=== PATIENT | male | born 1965 | race African-American/Black ===

== ENCOUNTER 2023-08-26 20:13 | Emergency (ER) | payer OTHER, SELFPAY ==
--- NOTE | ~2023-08-26 | CT_ITS ---
EXAMINATION: CT ANGIOGRAM OF THE CHEST WITH AND WITHOUT CONTRAST (CT PULMONARY ANGIOGRAM FOR PE) CLINICAL INFORMATION: Reason for Exam cp and elevated d dimer COMPARISON: None available. TECHNIQUE: Prior to contrast administration, noncontrast localization images were obtained. Subsequently, multidetector volumetric imaging was performed from the thoracic inlet to below the diaphragms following the administration of 80 mL Omnipaque 350 intravenous contrast. No contrast reaction reported Sagittal, coronal, and MIP oblique sagittal reformatted images were obtained on the CT workstation, uploaded to PACS, and reviewed. This CT examination was performed using dose optimization techniques as appropriate, variously including the following: *Automated exposure control *Adjustment of mA and/or kV according to patient size (this includes techniques or standardized protocols for targeted exams where dose is matched to indication/reason for exam; i.e. extremities or head) *Use of iterative reconstruction technique Total exam dose-length product mGy-cm FINDINGS: QUALITY OF STUDY/CONTRAST BOLUS: Satisfactory. PULMONARY ARTERIES: No pulmonary emboli. THORACIC AORTA: No aneurysm. LUNG: No focal consolidation, nodules or masses. PLEURA: No pleural effusion or pneumothorax. MEDIASTINUM: Normal heart size. No pericardial effusion. No hilar or mediastinal lymphadenopathy. No evidence of septal bowing or right heart strain. CORONARY ARTERY CALCIFICATION: None visualized on this study. CHEST WALL/AXILLA: No axillary or internal mammary lymphadenopathy. OSSEOUS STRUCTURES: No acute or suspicious osseous abnormality. UPPER ABDOMEN: There is a 4.8 cm cyst upper pole left kidney. No reflux of contrast into the hepatic veins to suggest elevated right heart pressures. CT/CT angio chest PE protocol IMPRESSION: No evidence of pulmonary embolism. No active cardiopulmonary disease. VTE: negative.
--- NOTE | ~2023-08-26 | XR_ITS ---
EXAMINATION: XR CHEST CLINICAL INFORMATION: Chest pain. COMPARISON: None available. TECHNIQUE: Frontal view of the chest was obtained. FINDINGS: Normal appearance of the cardiomediastinal silhouette. No focal airspace opacities, pleural effusion or pneumothorax. No acute osseous findings. Visualized upper abdomen is within normal limits. XR/XR chest 1V IMPRESSION: No acute cardiopulmonary findings.
--- NOTE | 2023-08-26 20:20 | ECG_ITS ---
Test Reason : chest pain Blood Pressure : / mmHG Vent. Rate : 058 BPM Atrial Rate : 058 BPM P-R Int : 146 ms QRS Dur : 088 ms QT Int : 390 ms P-R-T Axes : 056 -07 024 degrees QTc Int : 382 ms Sinus bradycardia Minimal voltage criteria for LVH, may be normal variant ( R in aVL ) Borderline ECG No previous ECGs available Referred By: Generic ED Physician Electronically Signed By:ERNESTINE QUINONES MD
[2023-08-26 20:31] VITALS: BP 135/69; PULSE 58; RESP 18; TEMP 37.1; O2SAT 98; BMI 31.0
--- NOTE | 2023-08-26 20:38 | ED_ITS ---
HPI - Chest Pain General Chief Complaint: Chest Pain Stated Complaint: LFT SIDE UPPER CHEST PAIN/FLATULANCE Time Seen by Provider: 08/27/23 01:14 Source: patient Mode of arrival: ambulatory Limitations: no limitations History of Present Illness HPI narrative: 58-year-old male with no much past medical history came in for evaluation of left-sided chest pain started since yesterday, pain is on and off localized to the left side of the chest without radiation, no clear aggravating factor or relieving factor, no other associated symptoms. Declined any recent travel, no lower extremity swelling or tenderness, no history of PE or DVT. Patient declined any history of hypertension, diabetes, or family history of heart disease. Patient also been getting in epigastric burning sensation patient think it is GERD. Related Data Allergies Allergy/AdvReac Type Severity Reaction Status Date / Time No Known Allergies Allergy Verified 08/26/23 20:36 Review of Systems 2 Review of Systems: All other systems are reviewed and are negative Constitutional: Reports as per HPI and Reports no additional constitutional complaints Eyes: Reports as per HPI and Reports no additional eye complaints Reports system reviewed and no additional complaints, except as documented Cardiovascular: Reports as per HPI and Reports no additional cardiovascular complaints Respiratory: Reports as per HPI and Reports no additional respiratory complaints Gastrointestinal: Reports as per HPI and Reports no additional gastrointestinal complaints Genitourinary: Reports no additional female genitourinary complaints Musculoskeletal: Reports no additional musculoskeletal complaints Skin/Breast: Reports system reviewed and no additional complaints, except as docu Psychiatric: Reports no additional psychiatric complaints Endocrine: Reports no additional endocrine complaints Hematologic/Lymphatic: Reports no additional hematologic/lymphatic complaints Allergic/Immunologic: Reports no additional allergic/immunologic complaints Reports system reviewed and no additional complaints, except as documented and Reports Abnormal speech present [facility] Social History Social History Advance Directives: No Advance Directives Information Provided: No Physical Exam 2 Vital Signs: Vital Signs: Last Vital Signs Temp 97.7 F 08/27/23 02:00 Pulse 49 L 08/27/23 04:06 Resp 10 L 08/27/23 04:06 BP 118/78 08/27/23 04:06 Pulse Ox 98 08/27/23 04:06 O2 Del Method Room Air 08/27/23 04:06 BMI result Body Mass Index 31.0 Vital signs have been reviewed and appear to be correct. Blood pressure elevated. Heart rate normal. Respiratory rate normal. Temperature normal. Oxygen saturation normal. Appearance: Alert. Oriented X3. No acute distress. Head: Normal external exam. Normocephalic. Atraumatic. No Sanchez signs noted. No raccoon eyes noted Eyes: PERRLA. EOMI. Conjunctiva and sclera normal. Eyelids normal. ENT: TM's Normal. Pharynx normal. Uvula midline. Moist mucous membranes. No trismus noted. No drooling noted. No muffled voice noted. Neck: Normal inspection. Neck supple. FROM. No adenopathy. Thyroid Normal. No meningeal signs. No neck mass noted. CVS: Normal heart rate and rhythm. Heart sound normal. No murmurs noted. Pulses normal throughout. Respiratory: No respiratory distress. Painless inspiration. Breath sounds normal. No wheezes/rales/rhonchi noted. Chest nontender. No accessory muscle usage noted or decreased air movement noted. Abdomen: Soft, mild epigastric tenderness, no rebound tenderness, no guarding. Bowel sounds normal in all 4 quadrants. No distention noted. No organomegaly noted. No visible injury noted. Back: No CVA tenderness. Full range of motion noted. Skin: Skin warm and dry. Normal skin color. Normal skin turgor. No rashes/lesions/lacerations noted. Extremities: No lower extremity edema. Extremities exhibit normal range of motion. Extremities nontender. Neuro: Oriented X 3. Cranial nerve exam: II-XII are grossly intact No motor deficit. No sensory deficit. Reflexes normal. Course Course Course Narrative: RME: 58 yold male with pmh of GERD presents to the ED for epigastric acid burning sensation with left sided chest pain. Cardiac work up ordered. Reevaluation(s) Reevaluation #1: Left-sided chest pain since yesterday, patient is at low risk for heart disease, elevated D-dimer CT angio of the chest ruled out pulmonary embolism patient also at low risk for pulmonary embolism. Patient was reassured and instructed to follow-up with PCP/Dr. Casillas. Time: 02:00 Medications Administered Discontinued Medications Generic Name Dose Route Start Last Admin Trade Name Freq PRN Reason Stop Dose Admin Iohexol 65 ml 08/27/23 03:28 08/27/23 03:28 Iohexol 350 Mg/Ml 100 Ml Infus..Btl IV 08/27/23 03:29 65 ml ONCE ONE Administration Medical Decision Making Differential Diagnosis Differential Diagnoses: The differential diagnosis associated with the presentation includes (ACS, pulmonary embolism, pneumonia, pneumothorax, electrolyte derangement, severe anemia.) Admission/Observation Consideration of admission/observation: Escalation of care including admission/observation considered Lab Data MDM Lab Attestation statement: I reviewed the patient's lab results. 08/26/23 21:28 08/26/23 21:28 Labs: Lab Results 08/26/23 08/26/23 08/27/23 Range/Units 21:28 21:29 02:40 WBC 3.9 L (4.8-10.8) X10*3/uL RBC 4.51 L (4.60-5.80) X10*6/uL Hgb 13.8 L (14.0-18.0) g/dl Hct 40.0 L (42.0-52.0) % MCV 88.7 (80.0-98.0) fL MCH 30.6 (27.0-33.0) pg MCHC 34.5 (31.0-36.0) g/dl RDW 12.3 (11.0-16.0) % Plt Count 187 (160-400) X10*3/uL MPV 9.5 (9.4-12.4) fL Immature Gran % (Auto) 0.3 (0.0-0.4) % Neut % (Auto) 31.6 L (45-73) % Lymph % (Auto) 50.6 H (20-40) % [place] % (Auto) 13.4 H (2-11) % Eos % (Auto) 3.3 (0-4) % Baso % (Auto) 0.8 (0-2) % Lymph # (Auto) 2.0 (1.2-4.9) X10*3/uL [place] # (Auto) 0.5 (0.1-1.2) X10*3/uL Eos # (Auto) 0.1 (0.0-0.4) X10*3/uL Baso # (Auto) 0.0 (0.0-0.2) X10*3/uL Abs Immat Gran (auto) 0.01 (0.00-0.03) X10*3/uL Absolute Neuts (auto) 1.2 L (2.0-8.3) x10*3/uL Absolute Nucleated RBC 0.000 (0.0-0.012) X10*3/uL Nucleated RBC % (auto) 0.0 (0.0-0.2) /100WBC PT 10.8 L (11.1-13.3) SEC INR 0.9 (0.9-1.1) APTT 24.8 L (26.0-36.8) SEC D-Dimer High Sensitivty 390 NG/ML Sodium 142 (135-145) mmol/L Potassium 3.8 (3.3-5.1) mmol/L Chloride 106 (96-108) mmol/L Carbon Dioxide 28 (22-29) mmol/L Anion Gap 12 (12-20) BUN 11 (9-16) mg/dL Creatinine 1.14 (0.5-1.4) mg/dL Estim Creat Clear Calc 72.1 Estimated GFR > 60 Random Glucose 85 (60-115) mg/dL Calcium 9.5 (8.4-10.2) mg/dL Total Bilirubin 0.3 (0.0-1.0) mg/dL AST 18 (5-37) U/L ALT 18 (0-40) U/L Alkaline Phosphatase 51 (39-117) U/L Troponin I High Sens < 2.7 < 2.7 (<3.5-35.0) ng/L B-Natriuretic Peptide 36 (<100) pg/mL Total Protein 7.0 (6.5-8.0) g/dL Albumin 4.3 (3.5-5.0) g/dL Lipase 43 (8-78) U/L Independent Interpretation I performed an independent interpretation of an: EKG (Sinus rhythm at 50 beats per minutes, normal intervals, no ST-T changes, no old EKG to compare.), Plain X-Ray (Chest: No acute cardiopulmonary findings.) and CT Scan (CTa chest: No pulmonary embolism.) Radiology Impression Discussion of test interpretation with radiology: I have reviewed the radiologist's reading. Scores Heart Score History: -0- slightly suspicious ECG: -0- normal Age: -1- >45 - <65 Risk factory: -1- 1 or 2 risk factors Troponin: -0- < or = normal limit Score: 2 Risk: 1.7% Discharge Plan Discharge Clinical Impression: Atypical chest pain Patient Disposition: Home, Self-Care Instructions: Chest Pain (ED) Referrals: Raghu Casillas MD [Physician] - Stand Alone Forms: Work/School Release Interventions: ED Discharge Assessment Last Done: 08/27/23 05:29 Discharge Date/Time: 08/27/23 05:36
[2023-08-26 21:32] LABS: MANUAL DIFF FLAG NO
[2023-08-26 21:34] LABS: Basophils Percent Auto 0.8 % (0-2); Eosinophils Absolute Auto 0.1 X10*3/uL (0.0-0.4); Eosinophils Percent Auto 3.3 % (0-4); Hemoglobin 13.8 g/dl (14.0-18.0); Imm Gran Abs Auto 0.01 X10*3/uL (0.00-0.03); Imm Gran Pct Auto 0.3 % (0.0-0.4); Lymphocytes Percent Auto 50.6 % (20-40); Mean Corpuscular HGB Conc 34.5 g/dl (31.0-36.0); Mean Corpuscular Hemoglobin 30.6 pg (27.0-33.0); Mean Corpuscular Volume 88.7 fL (80.0-98.0); Mean Platelet Volume 9.5 fL (9.4-12.4); Monocytes Absolute Auto 0.5 X10*3/uL (0.1-1.2); Monocytes Percent Auto 13.4 % (2-11); Neutrophils Absolute Auto 1.2 x10*3/uL (2.0-8.3); Neutrophils Percent Auto 31.6 % (45-73); Platelet Count 187 X10*3/uL (160-400); Red Blood Count 4.51 X10*6/uL (4.60-5.80); Red Cell Distribution Width 12.3 % (11.0-16.0); White Blood Count 3.9 X10*3/uL (4.8-10.8)
[2023-08-26 21:39] LABS: INTERNATIONAL NORM RATIO 0.9 (0.9-1.1); Prothrombin Time 10.8 SEC (11.1-13.3)
[2023-08-26 21:41] LABS: Partial Thromboplastin Time 24.8 SEC (26.0-36.8)
[2023-08-26 21:48] LABS: Alanine Aminotransferase 18 U/L (0-40); Albumin Level 4.3 g/dL (3.5-5.0); Alkaline Phosphatase 51 U/L (39-117); Anion Gap 12 (12-20); Aspartate Amino Transferase 18 U/L (5-37); Bilirubin Total 0.3 mg/dL (0.0-1.0); Blood Urea Nitrogen 11 mg/dL (9-16); Calcium 9.5 mg/dL (8.4-10.2); Carbon Dioxide 28 mmol/L (22-29); Chloride 106 mmol/L (96-108); Creatinine Clr Calc Pharmacy 72.1; Estimated Glomerular Filt Rate > 60; Glucose Random 85 mg/dL (60-115); Lipase 43 U/L (8-78); Potassium 3.8 mmol/L (3.3-5.1); Sodium 142 mmol/L (135-145)
[2023-08-26 21:54] LABS: B Type Natriuretic Peptide 36 pg/mL (<100)
[2023-08-26 21:55] LABS: Troponin-I High Sensitivity < 2.7 ng/L (<3.5-35.0)
[2023-08-27 01:08] VITALS: PULSE 50
[2023-08-27 01:12] VITALS: BP 100/70; PULSE 49; RESP 15; TEMP 530.9; TEMP 987.6; O2SAT 100
[2023-08-27 01:53] LABS: D Dimer High Sensitivity 390 NG/ML
[2023-08-27 02:00] VITALS: BP 112/73; PULSE 48; RESP 14; TEMP 36.5; O2SAT 99
[2023-08-27 03:04] LABS: Troponin-I High Sensitivity < 2.7 ng/L (<3.5-35.0)
[2023-08-27] MEDS: iohexoL 350 MG/ML 100 ML INFUS..BTL 65 ML IV (03:28)
[2023-08-27 04:06] VITALS: BP 118/78; PULSE 49; RESP 10; O2SAT 98
== END 2023-08-27 05:36 | disposition home or self-care (01) ==
PROVIDERS: Physician Assistant; Emergency Provider Emergency Medicine
DX: R07.89 Other chest pain (principal); R00.1 Bradycardia, unspecified; R06.02 Shortness of breath; Z79.899 Other long term (current) drug therapy
CPT/HCPCS: 36415; 71045; 71275; 80053; 83690; 83880; 84484; 85025; 85379; 85610; 85730; 93005; 99284; 99285; Q9967

== ENCOUNTER → 2023-08-26 20:20 | Outpatient (BNV) | payer OTHER, SELFPAY | PROVIDERS: Emergency Provider Emergency Medicine; Visit Provider Internal Medicine Cardiovascular Disease | DX: R07.9 Chest pain, unspecified (principal) | CPT/HCPCS: 93010 ==

== ENCOUNTER 2024-04-06 10:55 | Outpatient (AMB) | payer OTHER, SELFPAY ==
[2024-04-06 11:06] VITALS: BP 124/80; PULSE 58; O2SAT 98; BMI 30.4
--- NOTE | 2024-04-06 11:06 | HO.NEPHOV_ITS ---
Vital Signs 04/06/24 11:06 Height 5 ft 6 in Weight 188 lb 4 oz BMI 30.4 BP 124/80 Blood Pressure Location Lt brachial Position Sitting Pulse 58 Pulse Source Pulse Oximeter Pulse Oximetry (%) 98 Oxygen Delivery Method Room Air Intake Visit Reasons: Previous Pt- Conf Naturopathic Doctor Required: No Accompanied by: Self / Same As Patient Allergies No Known Allergies Allergy (Verified 04/06/24 11:10) HPI Comments Details: Erickson was seen in follow-up of his mild chronic kidney disease. He recently had a hernia repaired. He does not take any nonsteroidal anti-inflammatories. He maintains good hydration. He is on tamsulosin for prostatic symptoms. He has no orthostasis. He does not have any chest pain, shortness of, proximal nocturnal dyspnea,, pedal edema, urinary symptoms, sinusitis, recent antibiotic intake, epistaxis, hematemesis, melena, flank pain or renal calculi. He feels well did not major complaints during this office visit. [facility] Medical History (Updated 04/06/24 @ 11:29 by Merlin Cuello MD) Chronic kidney disease Surgical History (Updated 04/06/24 @ 11:11 by Karen Lind MA) History of hernia repair Social History (Updated 04/06/24 @ 11:11 by Karen Lind MA) Alcohol intake: never Patient Tobacco Use Status: Never used Tobacco Review of Systems Const All systems reviewed & are unremarkable except as noted in HPI and below Physical Exam Vital Signs: Last Vital Signs Pulse 58 04/06/24 11:06 BP 124/80 04/06/24 11:06 Pulse Ox 98 04/06/24 11:06 Oxygen Delivery Method Room Air 04/06/24 11:06 BMI result Body Mass Index 30.4 Const General: comfortable and no acute distress Orientation/consciousness: patient oriented x3 HEENT Head: Yes normocephalic Mouth: Normal oral and palatal mucosa present Eyes EOM: EOMs intact bilaterally Neck Neck: Yes supple Resp Auscultation: clear to auscultation bilaterally Cardio Jugular venous distension: no JVD Rate: regular rate GI Palpation (GI): Soft to palpation Auscultation: normal bowel sounds General: Yes no CVA tenderness Back/Spine/Pelvis Back: no CVA tenderness Skin General skin exam: no rashes or lesions noted Neuro General: patient oriented x3 and moves all extremities Extrem General: Yes no pedal edema Results Reviewed Nephrology Results: Hgb 13.8 g/dl (14.0-18.0) L 08/26/23 WBC 3.9 X10*3/uL (4.8-10.8) L 08/26/23 Plt Count 187 X10*3/uL (160-400) 08/26/23 Sodium 142 mmol/L (135-145) 08/26/23 Potassium 3.8 mmol/L (3.3-5.1) 08/26/23 Chloride 106 mmol/L (96-108) 08/26/23 Carbon Dioxide 28 mmol/L (22-29) 08/26/23 BUN 11 mg/dL (9-16) 08/26/23 Creatinine 1.14 mg/dL (0.5-1.4) 08/26/23 Calcium 9.5 mg/dL (8.4-10.2) 08/26/23 Assessment & Plan Assessment & Plan (1) CKD (chronic kidney disease) stage 2, GFR 60-89 ml/min: Code(s): N18.2 - Chronic kidney disease, stage 2 (mild) Category: Medical Plan Erickson has a very mild CKD a long time. His renal functions very stable. His blood pressure is at goal. He maintains good hydration. He avoids nonsteroidal anti-inflammatories. I did not make any medication changes today. Follow-up lab work ordered. I intend to do a 24 hour urine collection for creatinine clearance after next visit. Answered all questions. Follow-up appointment given. Orders: Orders Creatinine 6 Months N18.2 - Chronic kidney disease, stage 2 (mild) Electrolytes 6 Months N18.2 - Chronic kidney disease, stage 2 (mild) Protein Creatinine Ratio, Ur 6 Months N18.2 - Chronic kidney disease, stage 2 (mild) Parathyroid Hormone Intact 6 Months N18.2 - Chronic kidney disease, stage 2 (mild) Blood Urea Nitrogen 6 Months N18.2 - Chronic kidney disease, stage 2 (mild) UA and rflx microscopic 6 Months N18.2 - Chronic kidney disease, stage 2 (mild) Vitamin D 25-OH Total 6 Months N18.2 - Chronic kidney disease, stage 2 (mild) Calcium 6 Months N18.2 - Chronic kidney disease, stage 2 (mild) Coding Level of Care Code Est Pt Level 4 (90896) Diagnoses CKD (chronic kidney disease) stage 2, GFR 60-89 ml/min N18.2
== END 2024-04-06 11:33 | disposition home or self-care (01) ==
PROVIDERS: Visit Provider Internal Medicine Nephrology
DX: N18.2 Chronic kidney disease, stage 2 (mild) (principal)
CPT/HCPCS: 99214

== ENCOUNTER → 2024-04-06 10:55 | Outpatient (BNVA) | payer OTHER, SELFPAY | PROVIDERS: Visit Provider Internal Medicine Nephrology ==

== ENCOUNTER 2024-12-03 15:03 | Outpatient (REF) | payer BC, SELFPAY ==
--- OUTSIDE RECORDS SUMMARY | 2024-12-03 15:07 | XMS_ITS | Clinical Summary ---
Author Organization [facility] Address [address] [place] [address] Care Team Providers Care Leasing Consultant Name Role Phone Anne-Marie Carvalho DO Primary Care Provider [phone] Allergies No known active allergies Medications ascorbic acid, vitamin C, 500 mg capsule Take 500 mg by mouth daily. Active cholecalciferol (VITAMIN D-3) 10 mcg (400 unit) tablet Take 1 Tablet by mouth daily. Active latanoprost (XALATAN) 0.005 % ophthalmic solution 1 Drop at bedtime. Active multivitamin (MULTI-DAY ORAL) Take by mouth. Active tamsulosin (FLOMAX) 0.4 mg 24 hr capsule Take 1 capsule (0.4 mg total) by mouth 1 (one) time each day. 01/05/2024 Active tadalafiL (CIALIS) 5 mg tablet Take 1 tablet (5 mg total) by mouth 1 (one) time each day if needed for erectile dysfunction. 10 tablet 2 09/10/2024 Active Active Problems Problem Noted Date Diagnosed Date BPH (benign prostatic hyperplasia) 09/10/2024 Prediabetes 11/25/2022 Obesity (BMI 30-39.9) 04/29/2022 IBS (irritable bowel syndrome) 04/29/2022 Overview (05/05/2024): Constipation predominant Hyperlipidemia 04/29/2022 Glaucoma 04/29/2022 Erectile dysfunction 04/29/2022 Encounters Date Type Department Care Team Description 09/10/2024 10:45 AM EST [facility] [address] [place] [address] Bjiu Hooker PA Mixed hyperlipidemia (Primary Dx); Prediabetes; Benign prostatic hyperplasia, unspecified whether lower urinary tract symptoms present; Glaucoma, unspecified glaucoma type, unspecified laterality; Erectile dysfunction, unspecified erectile dysfunction type from Last 3 Months Immunizations Name Administration Dates Next Due Hep A, Unspecified 11/26/2005 Influenza Quadravalent, MDCK , 0.5ml, preservative free (Flucelvax) 6mo and older 04/29/2022,04/25/2021 Influenza trivalent, 0.5mL, preservative free (Fluarix; FluLaval; Fluzone) ages 6mo and older (Afluria) 3 years and older 06/09/2020 Influenza trivalent, with pr eservative (Fluzone; Afluria) 6mo and older 07/21/2017,06/13/2016 Pneumococcal polysaccharide 23 valent (Pneumovax 23) 2yo and older 10/13/2021 Tdap Tetanus diptheria acell ular pertussis (Boostrix; Adacel) 7yo and older 04/29/2022 Typhoid VICPS (Typhim Vi) 2yo and older 11/27/19 06 Yellow Fever (YF-VAX) 9mo and older 11/26/2005 Surgical History Surgery Date Site/Laterality Comments OTHER SURGICAL HISTORY PROCEDURE: [place] RPR UMBILICAL HRNA 5 YRS/> REDUCIBLE HERNIA REPAIR PROCEDURE: [place] REPAIR FIRST ABDOMINAL WALL HERNIA Family History Medical History Relation Name Comments No Known Problems Brother 1 No Known Problems Brother 2 No Known Problems Brother 3 No Known Problems Father No Known Problems Mother No Known Problems Sister 1 No Known Problems Sister 2 No Known Problems Sister 3 No Known Problems Sister 4 No Known Problems Sister 5 Relation Name Status Comments Brother 1 Alive Brother 2 Alive Brother 3 Alive Father Mother Sister 1 Alive Sister 2 Alive Sister 3 Alive Sister 4 Alive Sister 5 Alive Social History Tobacco Use Types Packs/Day Years Used Date Smoking Tobacco: Never Smokeless Tobacco: Never Tobacco Cessation:Counseling Given: Not Answered Alcohol Use Standard Drinks/Week Comments Never 0 (1 standard drink = 0.6 oz pur e alcohol) Housing Instability Answer Date Recorde d Are you worried that in the next 2 months you may not have stable housing? No 09/03/2024 Food Access & Nutrition Answer Date Rec orded Do you have access to a vari ety of food including fruits and vegetables? Yes 09/03/2024 Access to Healthcare Answer Date Record ed Within the last 3 months, ho w many times did you visit the emergency department for your medical care? 0 09/03/2024 Health Literacy Answer Date Recorded How often do you need to hav e someone help you when you read instructions, pamphlets, or other written material from your doctor or pharmacy? Never 09/03/2024 Caregiver: How often do you need to have someone help you when you read instructions, pamphlets, or other written material from your doctor or pharmacy? Not on file 09/03/2024 Financial Risk Answer Date Recorded How hard is it for you to pa y for the very basics like food, housing, medical care, and air conditioning / heating? Hard 09/03/2024 Transportation Answer Date Recorded Has the lack of transportati on kept you from meetings, work, or from getting things needed for daily living? No Has the lack of transportati on kept you from medical appointments or from getting medications? No 09/03/2024 Social Isolation Answer Date Recorded How often do you feel lonely or isolated from th ose around you? Never 09/03/2024 Food Risk Answer Date Recorded Within the past 12 months we worried whether our food would run out before we got money to buy more. Never true 09/03/2024 Within the past 12 months th e food we bought just didn't last and we didn't have money to get more. Never true 09/03/2024 Dependent Care Answer Date Recorded Do you need help finding or paying for care for your loved ones. For example, early childhood teacher assistant or elderly care for an older adult? No 09/03/2024 Education Answer Date Recorded Do you think completing more education or training, like finishing a GED, going to college, or learning a trade, would be helpful for you? Yes 09/03/2024 Employment and Income Answer Date Recor ded During the last four weeks, have you been actively looking for work? No 09/03/2024 Living Situation Answer Date Recorded What is your living situation? 0 09/03/2024 Sex and Gender Information Value Date Recorded Sex Assigned at Not on file Legal Sex Male 9:31 PM EST Gender Identity Not on file Sexual Orientation Not on file Obstetrics History Last Filed Vital Signs Vital Sign Reading Time Taken Comments Blood Pressure 102/68 09/10/2024 10:36 AM EST Pulse 64 09/10/2024 10:36 AM EST Temperature 36.4 ??C (97.5 ??F) 05/26/2024 9:39 AM ES T Respiratory Rate 16 09/10/2024 10:36 AM EST Oxygen Saturation - - Inhaled Oxygen Concentration - - Weight 84.4 kg (186 lb) 09/10/2024 10:36 AM EST Height 167.6 cm (5' 6 ) 05/26/2024 9:39 AM EST Body Mass Index 30.02 05/26/2024 9:39 AM EST Plan of Treatment Health Maintenance Due Date Last Done Comments Pneumococcal Vaccine: 50+ Years (2 of 2 - PCV) 10/13/2022 10/13/2021 Zoster Vaccines (2 of 2) 02/16/2023 12/22/2022 COVID-19 Vaccine ( season) 2024 12/22/2022, 10/13/2021, 03/13/2021, Additional history exists Depression Screening 09/03/2025 09/03/2024 Social Influencers of Health Screening 09/03/2025 09/03/2024 Colorectal Cancer Screening: Colonoscopy 06/28/2028 06/28/2023 Cholesterol Screening (Lipid Panel) 09/10/2029 09/10/2024, 12/05/2023, 12/05/2023 DTaP,Tdap,and Td Vaccines (3 - Td or Tdap) 04/29/2032 04/29/2022, 02/21/2022 RSV Immunization Adult Patients (1 - 1-dose 75+ series) 2039 Pneumococcal Vaccine: Pediatrics (0 to 5 Years) and At-Risk Patients (6 to 64 Years) Aged Out 10/13/2021 No longer eligible based on patient's age to complete this topic Hepatitis C Screening Completed 05/15/2022 Influenza Vaccine Completed 04/09/2024, , 04/25/2021, Additional history exists Hepatitis A Vaccines Aged Out 04/15/2024, 11/27/19 06 No longer eligible based on patient's age to complete this topic Meningococcal ACWY Vaccine Aged Out 04/15/2024 N o longer eligible based on patient's age to complete this topic HIB Vaccines Aged Out No longer eligi ble based on patient's age to complete this topic HIV Screening Discontinued HPV Vaccines Aged Out No longer eligi ble based on patient's age to complete this topic Hepatitis B Vaccines Aged Out No long er eligible based on patient's age to complete this topic IPV Vaccines Aged Out No longer eligi ble based on patient's age to complete this topic MMR Vaccines Aged Out No longer eligi ble based on patient's age to complete this topic Meningococcal B Vaccine Aged Out No l onger eligible based on patient's age to complete this topic RSV Immunization Patients Under 20 months Aged Out No longer eligible based on patient's age to complete this topic Varicella Vaccines Aged Out No longer eligible based on patient's age to complete this topic Procedures Procedure Name Priority Date/Time Associated Diagnosis Comments LIPID PANEL WITH REFLEX TO DIRECT LDL Routine 09/10/2024 11:09 AM EST Mixed hyperlipidemia Prediabetes COMPREHENSIVE METABOLIC PANEL Routine 09/10/2024 11:09 AM EST Mixed hyperlipidemia Prediabetes HEMOGLOBIN A1C Routine 09/10/2024 11:09 AM EST Mixed hyperlipidemia Prediabetes COLONOSCOPY Routine 06/28/2023 HEPATITIS C SCREENING Routine 05/15/2022 from Last 3 Months or Most Recently Relevant to Health Maintenance Results * (ABNORMAL) Lipid panel with reflex to direct LDL (09/10/2024 11:09 AM EST) [facility] Cholesterol 178 0 - 200 mg/dL LAB CHEMISTRY METHOD 09/10/2024 6:[address] [facility] Triglycerides 102 0 - 150 mg/dL LAB CHEMISTRY METHOD 09/10/2024 6:[address] [facility] HDL 45 >=40 mg/dL LAB CHEMISTRY METHOD 09/10/2024 6:01 PM [facility] LDL Calculated 113(H) 0 - 100 mg/dL LAB CHEMISTRY METHOD 09/10/2024 6:01 PM [facility] VLDL Cholesterol Rashel 20.4 mg/dL LAB CHEMISTRY METHOD 09/10/2024 6:01 PM [facility] Non HDL Chol. (LDL+VLDL) 133 <145 mg/dL LAB CHEMISTRY METHOD 09/10/2024 6:01 PM [facility] Chol/HDL Ratio 4.0 0.0 - 4.4 LAB CHEMISTRY METHOD 09/10/2024 6:01 PM [facility] Blood Venous blood specimen / Unknown Venipuncture / Unknown 09/10/2024 11:09 AM EST 09/10/2024 11:09 AM EST Biju YO LAB BLOOD ORDERABLES Fi nal Result [facility] [address] [place] [address], * Hemoglobin A1c (09/10/2024 11:09 AM EST) Hemoglobin A1C 5.9 <6.5 % LAB CHEMISTRY METHOD 09/10/2024 10:06 PM [facility] Mean Bld Glu Estim. 123 mg/dL LAB CHEMISTRY METHOD 09/10/2024 10:06 PM [facility] Blood Venous blood specimen / Unknown Venipuncture / Unknown 09/10/2024 11:09 AM EST 09/10/2024 11:09 AM EST us Biju YO LAB BLOOD ORDERABLES Fi nal Result [facility] [address] [place] [address], [place] [phone] * Comprehensive metabolic panel (09/10/2024 11:09 AM EST) Sodium 139 133 - 145 mmol/L LAB CHEMISTRY METHOD 09/10/2024 6:19 PM [facility] Potassium 4.0 3.5 - 5.5 mmol/L LAB CHEMISTRY METHOD 09/10/2024 6:19 PM [facility] Chloride 106 96 - 110 mmol/L LAB CHEMISTRY METHOD 09/10/2024 6:19 PM [facility] CO2 29 21 - 32 mmol/L LAB CHEMISTRY METHOD 09/10/2024 6:19 PM [facility] Anion Gap 4 3 - 11 LAB CHEMISTRY METHOD 09/10/2024 6:19 PM [facility] Glucose 100 70 - 100 mg/dL LAB CHEMISTRY METHOD 09/10/2024 6:19 PM [facility] BUN 9 5 - 25 mg/dL LAB CHEMISTRY METHOD 09/10/2024 6:19 PM [facility] Creatinine 1.28 0.70 - 1.30 mg/dL LAB CHEMISTRY METHOD 09/10/2024 6:19 PM [facility] eGFR 64 >=60 mL/min/1. 73m2 LAB CHEMISTRY METHOD 09/10/2024 6:19 PM [facility] Comment:Calculation based on the??Chronic Kidney Disease Epidemiology Collaboration (CKD-EPI) equation refit??without adjustment for race. BUN/Creatinine Ratio 7.0 LAB CHEMISTRY METHOD 09/10/2024 6:19 PM [facility] Calcium 9.4 8.5 - 10.5 mg/dL LAB CHEMISTRY METHOD 09/10/2024 6:19 PM [facility] AST (SGOT) 10 10 - 42 unit/L LAB CHEMISTRY METHOD 09/10/2024 6:19 PM [facility] ALT (SGPT) 25 10 - 60 unit/L LAB CHEMISTRY METHOD 09/10/2024 6:[address] [facility] Alkaline Phosphatase 57 42 - 121 unit/L LAB CHEMISTRY METHOD 09/10/2024 6:19 PM [facility] Total Protein 7.1 6.0 - 8.0 g/dL LAB CHEMISTRY METHOD 09/10/2024 6:[address] [facility] Albumin 4.1 3.2 - 5.0 g/dL LAB CHEMISTRY METHOD 09/10/2024 6:19 PM [facility] Total Bilirubin 0.6 0.0 - 1.4 mg/dL LAB CHEMISTRY METHOD 09/10/2024 6:19 PM [facility] Blood Venous blood specimen / Unknown Venipuncture / Unknown 09/10/2024 11:09 AM EST 09/10/2024 11:09 AM EST Biju YO LAB BLOOD ORDERABLES Fi nal Result [facility] [address] [place] [address], * Colonoscopy (06/28/2023) Colonoscopy Abstracted, No interpretation Anatomical Region Laterality Modality Other Historical Provider HEALTH MAINTENANCE Final Result * Hepatitis C Screening (05/15/2022) Pathologist [facility] Hepatitis C Screening Abstracted Historical Provider HEALTH MAINTENANCE Final Result from Last 3 Months or Most Recently Relevant to Health Maintenance Insurance [facility] Care Teams Leasing Consultant Relationship Specialty Start Date End Date Anne-Marie Carvalho DO [address] [address] PCP - General Internal Medicine 09/09/24
[2024-12-03 15:51] LABS: Appearance Urine Clear; Color Urine Yellow; Glucose Urine UA Negative (Negative); Leukocyte Esterase Urine Negative (Negative); Nitrite Urine Negative (Negative); Urine Blood Negative (Negative); Urine Ketones Trace mg/dL (Negative); Urine Protein Negative (Neg-Trace)
[2024-12-03 16:17] LABS: Anion Gap 7 (12-20); Blood Urea Nitrogen 13 mg/dL (9-16); Calcium 9.5 mg/dL (8.4-10.2); Carbon Dioxide 29 mmol/L (22-29); Chloride 108 mmol/L (96-108); Estimated Glomerular Filt Rate > 60; Potassium 3.9 mmol/L (3.3-5.1); Sodium 140 mmol/L (135-145)
[2024-12-03 16:19] LABS: Parathyroid Hormone Intact 92.2 pg/mL (8.7-77.1)
[2024-12-03 16:33] LABS: Vitamin D 25-OH Total 61.5 ng/mL (>30)
[2024-12-03 17:07] LABS: Creatinine Urine 214.57 mg/dL; Protein/Creatinine Ratio, Ur 0.07 (<0.2); Total Protein Urine Random 16 mg/dL (<12)
== END 2024-12-03 15:04 | disposition home or self-care (01) ==
LOC: HO.LAB 15:03
PROVIDERS: PCP Internal Medicine; Visit Provider Internal Medicine Nephrology
DX: N18.2 Chronic kidney disease, stage 2 (mild) (principal)
CPT/HCPCS: 36415; 80051; 81003; 82306; 82310; 82565; 82570; 83970; 84156; 84520

== ENCOUNTER 2024-12-07 10:38 | Outpatient (AMB) | payer BC, SELFPAY ==
[2024-12-07 10:50] VITALS: BP 102/80; PULSE 61; O2SAT 96; BMI 29.1
--- NOTE | 2024-12-07 10:50 | HO.NEPHOV_ITS ---
Vital Signs 12/07/24 10:50 Height 5 ft 6 in Weight 180 lb 4 oz BMI 29.1 BP 102/80 Blood Pressure Location Lt brachial Position Sitting Pulse 61 Pulse Source Pulse Oximeter Pulse Oximetry (%) 96 Oxygen Delivery Method Room Air Intake Visit Reasons: 8m follow up-[facility] [employer] Operator Required: No Accompanied by: Self / Same As Patient Allergies No Known Allergies Allergy (Verified 12/07/24 10:50) HPI Comments Details: Erickson was seen in follow-up of his mild chronic kidney disease. He has gained some weight. He does not take any nonsteroidal anti-inflammatories. He maintains good hydration. He is on tamsulosin for prostatic symptoms. He has no orthostasis. He does not have any chest pain, shortness of, proximal nocturnal dyspnea,, pedal edema, urinary symptoms, sinusitis, recent antibiotic intake, epistaxis, hematemesis, melena, flank pain or renal calculi. He feels well did not major complaints during this office visit. [facility] Medical History (Updated 12/07/24 @ 11:01 by Merlin Cuello MD) Chronic kidney disease Surgical History History of hernia repair Social History Alcohol intake: never Patient Tobacco Use Status: Never used Tobacco Review of Systems Const All systems reviewed & are unremarkable except as noted in HPI and below Physical Exam Vital Signs: Last Vital Signs Pulse 61 12/07/24 10:50 BP 102/80 12/07/24 10:50 Pulse Ox 96 12/07/24 10:50 Oxygen Delivery Method Room Air 12/07/24 10:50 BMI result Body Mass Index 29.1 Const General: comfortable and no acute distress Orientation/consciousness: patient oriented x3 HEENT Head: Yes normocephalic Mouth: Normal oral and palatal mucosa present Eyes EOM: EOMs intact bilaterally Neck Neck: Yes supple Resp Auscultation: clear to auscultation bilaterally Cardio Jugular venous distension: no JVD Rate: regular rate GI Palpation (GI): Soft to palpation Auscultation: normal bowel sounds General: Yes no CVA tenderness Back/Spine/Pelvis Back: no CVA tenderness Skin General skin exam: no rashes or lesions noted Neuro General: patient oriented x3 and moves all extremities Extrem General: Yes no pedal edema Results Reviewed Nephrology Results: Hgb 13.8 g/dl (14.0-18.0) L 08/26/23 WBC 3.9 X10*3/uL (4.8-10.8) L 08/26/23 Plt Count 187 X10*3/uL (160-400) 08/26/23 Sodium 140 mmol/L (135-145) 12/03/24 Potassium 3.9 mmol/L (3.3-5.1) 12/03/24 Chloride 108 mmol/L (96-108) 12/03/24 Carbon Dioxide 29 mmol/L (22-29) 12/03/24 BUN 13 mg/dL (9-16) 12/03/24 Creatinine 1.23 mg/dL (0.5-1.4) 12/03/24 Calcium 9.5 mg/dL (8.4-10.2) 12/03/24 PTH Intact 92.2 pg/mL (8.7-77.1) H 12/03/24 Urine Protein Negative mg/dL (Neg-Trace) 12/03/24 Urine Creatinine 214.57 mg/dL 12/03/24 Protein/Creatinin Ratio 0.07 (<0.2) 12/03/24 Assessment & Plan Assessment & Plan (1) Primary hyperparathyroidism: Code(s): E21.0 - Primary hyperparathyroidism Category: Medical (2) CKD (chronic kidney disease) stage 2, GFR 60-89 ml/min: Code(s): N18.2 - Chronic kidney disease, stage 2 (mild) Category: Medical Plan Erickson has a very mild CKD a long time. His renal functions very stable. His blood pressure is at goal. He maintains good hydration. He avoids nonsteroidal anti-inflammatories. His PTH is high. I ordered sestamibi scan. I did not make any medication changes today. Follow-up lab work ordered. I ordered a 24 hour urine collection for creatinine clearance after next visit. Answered all questions. Follow-up appointment given. Orders: Orders NM parathyroid SPECT w CT Today E21.0 - Primary hyperparathyroidism Creatinine 10 Months E21.0 - Primary hyperparathyroidism, N18.2 - Chronic kidney disease, stage 2 (mild) Blood Urea Nitrogen 10 Months E21.0 - Primary hyperparathyroidism, N18.2 - Chronic kidney disease, stage 2 (mild) Calcium 10 Months E21.0 - Primary hyperparathyroidism, N18.2 - Chronic kidney disease, stage 2 (mild) Parathyroid Hormone Intact 10 Months E21.0 - Primary hyperparathyroidism, N18.2 - Chronic kidney disease, stage 2 (mild) Electrolytes 10 Months E21.0 - Primary hyperparathyroidism, N18.2 - Chronic kidney disease, stage 2 (mild) Creatinine Clearance Urine 24U 10 Months E21.0 - Primary hyperparathyroidism, N18.2 - Chronic kidney disease, stage 2 (mild) Coding Level of Care Code Est Pt Level 4 (84271) Diagnoses Primary hyperparathyroidism E21.0 CKD (chronic kidney disease) stage 2, GFR 60-89 ml/min N18.2
--- OUTSIDE RECORDS SUMMARY | 2024-12-07 12:14 | XMS_ITS | Clinical Summary ---
Author Organization [facility] Address [address] [place] [address] Care Team Providers Care Tile Fitter Name Role Phone Anne-Marie Carvalho DO Primary Care Provider [phone] Allergies No known active allergies Medications ascorbic [...] Encounters Date Type Department Care Team Description 12/06/2024 Telephone Internal Medicine - [address] [place] [address] Vidya CarvalhomanaDO Referral 09/10/2024 10:45 AM EST [facility] [address] [place] [address] Biju Hooker PA Mixed hyperlipidemia (Primary Dx); Prediabetes; [...] Date Site/Laterality Comments OTHER SURGICAL HISTORY PROCEDURE: [place] RPR UMBILICAL HRNA 5 YRS/> REDUCIBLE HERNIA REPAIR PROCEDURE: [place] REPAIR FIRST ABDOMINAL WALL HERNIA Family History [...] care for your loved ones. For example, childcare center director or elderly care for an older adult? [...] Procedure Name Priority Date/Time Associated Diagnosis Comments EXTERNAL CLINICAL LAB 12/06/2024 LIPID PANEL WITH REFLEX TO DIRECT LDL Routine 09/10/2024 11:09 AM EST Mixed hyperlipidemia Prediabetes COMPREHENSIVE METABOLIC PANEL Routine 09/10/2024 11:09 AM EST Mixed hyperlipidemia Prediabetes HEMOGLOBIN A1C Routine 09/10/2024 11:09 AM EST Mixed hyperlipidemia Prediabetes COLONOSCOPY Routine 06/28/2023 HEPATITIS C SCREENING Routine 05/15/2022 from Last 3 Months or Most Recently Relevant to Health Maintenance Results * External clinical lab (12/06/2024) us Provider [facility] LAB BLOOD ORDERABLES Fin al Result * (ABNORMAL) Lipid panel with reflex to direct LDL (09/10/2024 11:09 AM EST) Cholesterol 178 0 - 200 mg/dL LAB CHEMISTRY METHOD 09/10/2024 6:01 PM [facility] Triglycerides 102 0 - 150 mg/dL LAB CHEMISTRY METHOD 09/10/2024 6:01 PM [facility] HDL 45 >=40 mg/dL LAB CHEMISTRY METHOD 09/10/2024 6:01 PM [facility] LDL Calculated 113(H) 0 - 100 mg/dL LAB CHEMISTRY METHOD 09/10/2024 6:01 PM [facility] VLDL Cholesterol Rashel 20.4 mg/dL LAB CHEMISTRY METHOD 09/10/2024 6:01 PM [facility] Non HDL Chol. (LDL+VLDL) 133 <145 mg/dL LAB CHEMISTRY METHOD 09/10/2024 6:01 PM [facility] Chol/HDL Ratio 4.0 0.0 - 4.4 LAB CHEMISTRY METHOD 09/10/2024 6:01 PM [facility] Blood Venous blood specimen / Unknown Venipuncture / Unknown 09/10/2024 11:09 AM EST 09/10/2024 11:09 AM EST Biju YO LAB BLOOD ORDERABLES Fi nal Result [facility] [address] [place] [address], * Hemoglobin A1c (09/10/2024 11:09 AM EST) Hemoglobin A1C 5.9 <6.5 % LAB CHEMISTRY METHOD 09/10/2024 10:06 PM [facility] Mean Bld Glu Estim. 123 mg/dL LAB CHEMISTRY METHOD 09/10/2024 10:06 PM [facility] Blood Venous blood specimen / Unknown Venipuncture / Unknown 09/10/2024 11:09 AM EST 09/10/2024 11:09 AM EST us Biju YO LAB BLOOD ORDERABLES Fi nal Result [facility] [address] [place] [address], * Comprehensive metabolic panel (09/10/2024 11:09 AM EST) Sodium 139 133 - 145 mmol/L LAB CHEMISTRY METHOD 09/10/2024 6:19 PM [facility] Potassium 4.0 3.5 - 5.5 mmol/L LAB CHEMISTRY METHOD 09/10/2024 6:19 PM [facility] Chloride 106 96 - 110 mmol/L LAB CHEMISTRY METHOD 09/10/2024 6:19 PM [facility] CO2 29 21 - 32 mmol/L LAB CHEMISTRY METHOD 09/10/2024 6:19 PM [facility] Anion Gap 4 3 - 11 LAB CHEMISTRY METHOD 09/10/2024 6:19 PM [facility] Glucose 100 70 - 100 mg/dL LAB CHEMISTRY METHOD 09/10/2024 6:19 PM [facility] BUN 9 5 - 25 mg/dL LAB CHEMISTRY METHOD 09/10/2024 6:19 PM [facility] Creatinine 1.28 0.70 - 1.30 mg/dL LAB CHEMISTRY METHOD 09/10/2024 6:19 PM [facility] eGFR 64 >=60 mL/min/1. 73m2 LAB CHEMISTRY METHOD 09/10/2024 6:19 PM [facility] Comment:Calculation based on the??Chronic Kidney Disease Epidemiology Collaboration (CKD-EPI) equation refit??without adjustment for race. BUN/Creatinine Ratio 7.0 LAB CHEMISTRY METHOD 09/10/2024 6:19 PM [facility] Calcium 9.4 8.5 - 10.5 mg/dL LAB CHEMISTRY METHOD 09/10/2024 6:19 PM [facility] AST (SGOT) 10 10 - 42 unit/L LAB CHEMISTRY METHOD 09/10/2024 6:19 PM [facility] ALT (SGPT) 25 10 - 60 unit/L LAB CHEMISTRY METHOD 09/10/2024 6:19 PM [facility] Alkaline Phosphatase 57 42 - 121 unit/L LAB CHEMISTRY METHOD 09/10/2024 6:19 PM [facility] Total Protein 7.1 6.0 - 8.0 g/dL LAB CHEMISTRY METHOD 09/10/2024 6:19 PM [facility] Albumin 4.1 3.2 - 5.0 g/dL LAB CHEMISTRY METHOD 09/10/2024 6:19 PM [facility] Total Bilirubin 0.6 0.0 - 1.4 mg/dL LAB CHEMISTRY METHOD 09/10/2024 6:19 PM [facility] Blood Venous blood specimen / Unknown Venipuncture / Unknown 09/10/2024 11:09 AM EST 09/10/2024 11:09 AM EST Biju YO LAB BLOOD ORDERABLES Fi nal Result [facility] [address] [place] [address], * Colonoscopy (06/28/2023) [facility] Colonoscopy Abstracted, No interpretation Anatomical Region Laterality Modality Other Historical Provider HEALTH MAINTENANCE Final Result * Hepatitis C Screening (05/15/2022) [facility] Hepatitis C Screening Abstracted us Historical Provider HEALTH MAINTENANCE Final Result from Last 3 Months or Most Recently Relevant to Health Maintenance Insurance [facility] Care Teams Tile Fitter Relationship Specialty Start Date End Date Anne-Marie Carvalho DO [address] [place] [address] PCP - General Internal Medicine 09/09/24
== END 2024-12-07 11:08 | disposition home or self-care (01) ==
LOC: HO.HKAS 10:38
PROVIDERS: PCP Internal Medicine; Visit Provider Internal Medicine Nephrology
DX: E21.0 Primary hyperparathyroidism (principal); N18.2 Chronic kidney disease, stage 2 (mild)
CPT/HCPCS: 99214

== ENCOUNTER → 2024-12-07 10:38 | Outpatient (BNVA) | payer BC, SELFPAY | PROVIDERS: PCP Internal Medicine; Visit Provider Internal Medicine Nephrology | DX: N18.2 Chronic kidney disease, stage 2 (mild) (principal) ==

== ENCOUNTER → 2025-01-26 10:51 | Outpatient (REF) | payer BC, SELFPAY ==
--- NOTE | ~2025-01-26 | NM_ITS ---
EXAMINATION: NM PARATHYROID SPECT AND CT HISTORY: E21.0 - Primary hyperparathyroidism. TECHNIQUE: A parathyroid imaging study was performed following the intravenous administration of 30 mCi technetium 99m-sestamibi. Planar images of the neck were obtained at 20 minutes and 2 hours post injection of the radiopharmaceutical. SPECT/CT fusion imaging was performed 2 hours after injection of the radiopharmaceutical. COMPARISON: Correlation is made with a CT angiogram of the chest dated 08/27/2023. FINDINGS: Initial images demonstrate salivary activity and activity in both thyroid lobes. No hot or cold abnormality is seen in the thyroid gland. Delayed images demonstrate washout from the thyroid gland. No retention of activity is seen in the neck or upper chest to suggest a parathyroid adenoma. This is confirmed on SPECT imaging. NM/NM parathyroid SPECT w CT IMPRESSION: No scintigraphic evidence of a parathyroid adenoma. Electronically signed by: Diony Villatoro MD 01/26/2025 03:00 PM EDT
--- OUTSIDE RECORDS SUMMARY | 2025-01-26 11:51 | XMS_ITS | Clinical Summary ---
Author Organization [facility] Facility Address [address] [address] Care Team Providers Care Quiller Runner Name Role Phone Faisal Kramer MD Primary Care Provider Unavai lable Allergies No known active allergies Medications latanoprost (XALATAN) 0.005 % ophthalmic solution Comments: Filled Date: Oct 31 2016 12:00AM 6 Active pravastatin (PRAVACHOL) 10 MG tablet Take 1 tablet by mouth 1 (one) time each day Active ascorbic acid (VITAMIN C) 500 MG tablet Take 1 tablet by mouth 1 (one) time each day Active tadalafil (CIALIS) 10 MG tablet Take 10 mg by mouth 1 (one) time each day if needed for erectile dysfunction Active VITAMIN D PO Take by mouth Act daniella Active Problems Problem Noted Date Diagnosed Date Cystic kidney disease 04/01/2023 Simple renal cyst 04/01/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 Chronic kidney disease stage 2 11/21/2011 0 04/01/2023 Immunizations Immunization Administration Dates Next Due Hep A, Unspecified 11/26/2005 Typhoid, Unspecified 11/26/2005 Yellow Fever 11/26/2005 Family History Medical History Relation Comments Heart disease Father Relation Status Comments Father Social History Tobacco Use Types Packs/Day Years Used Date Smoking Tobacco: Never Passive Smoke Exposure: Never Smokeless Tobacco: Never Tobacco Cessation:Counseling Given: No Alcohol Use Standard Drinks/Week Comments No 0 (1 standard drink = 0.6 oz pur e alcohol) Sex and Gender Information Value Date Recorded Sex Assigned at Not on file Legal Sex Male 5:18 PM EST Gender Identity Not on file Sexual Orientation Not on file Last Filed Vital Signs Vital Sign Reading Time Taken Comments Blood Pressure 108/76 04/01/2023 4:00 PM EDT Pulse 72 04/01/2023 4:00 PM EDT Temperature - - Respiratory Rate - - Oxygen Saturation 96% 04/01/2023 4:00 PM EDT Inhaled Oxygen Concentration - - Weight 83.9 kg (185 lb) 04/01/2023 4:00 PM EDT Height 167.6 cm (5' 6 ) 07/13/2020 12:00 PM EST Body Mass Index 29.86 07/13/2020 12:00 PM EST Plan of Treatment Health Maintenance Due Date Last Done Comments Pneumococcal Vaccine: 50+ Ye ars (1 of 2 - PCV) 1983 Colorectal Cancer Screening: Annual FOBT 2013 Colorectal Cancer Screening: Colonoscopy 2013 Colorectal Cancer Screening: Sigmoidoscopy 2013 Influenza Vaccine (#1) 2025 Hepatitis B Vaccine Aged Out No longe r eligible based on patient's age to complete this topic Insurance [employer] Care Teams Quiller Runner Relationship Specialty Start Date End Date Faisal Kramer MD PCP - General Family Medicine 04/01/23
--- OUTSIDE RECORDS SUMMARY | 2025-01-26 11:51 | XMS_ITS | Clinical Summary ---
Author Organization [facility] [place] Address [address] [place] [address] Care Team Providers Care Cost Analyst Name Role Phone Anne-Marie Carvalho DO Primary Care Provider [phone] Allergies No known active allergies Medications ascorbic [...] Encounters Date Type Department Care Team Description 01/18/2025 [facility] [address] [place] [address] [place] [address] Anne-Marie Carvalho, Referral (EXTERNAL - Urology ) 12/07/2024 [facility] [place] [address] Anne-Marie Carvalho, Referral 12/06/2024 Telephone [facility] [place] [address] Anne-Marie Carvalho, Referral from Last 3 Months Immunizations Name Administration [...] Date Site/Laterality Comments OTHER SURGICAL HISTORY PROCEDURE: HI RPR UMBILICAL HRNA 5 YRS/> REDUCIBLE HERNIA REPAIR PROCEDURE: HI REPAIR FIRST ABDOMINAL WALL HERNIA Family History [...] care for your loved ones. For example, child welfare specialist or elderly care for an older adult? [...] 63 09/10/2024 10:36 AM EST Temperature 36.4 C (97.5 F) 05/26/2024 9:39 AM EST Respiratory Rate 16 09/10/2024 10:36 AM EST [...] 2024 12/22/2022, 10/13/2021, 03/13/2021, Additional history exists Influenza Vaccine (#1) 2025 , 04/29/2022, 04/25/2021, Additional history exists Social Influencers of Health Screening 09/03/2025 09/03/2024 Colorectal Cancer Screening: Colonoscopy 06/28/2028 06/28/2023 Cholesterol Screening (Lipid Panel) 09/10/2029 09/10/2024, 12/05/2023, 12/05/2023 DTaP,Tdap,and Td Vaccines (3 - Td or Tdap) 04/29/2032 04/29/2022, 02/21/2022 RSV Immunization Adult Patients (1 - 1-dose 75+ series) 2039 Hepatitis C Screening Completed 05/15/2022 Hepatitis A Vaccines Aged Out 04/15/2024, 11/27/19 06 No longer eligible based on patient's age to complete this topic Meningococcal ACWY Vaccine Aged Out 04/15/2024 N o longer eligible based on patient's age to complete this topic Depression Screening Completed 09/03/2024 HIB Vaccines Aged Out No longer eligi [...] * External clinical lab (12/06/2024) us Provider [facility] LAB BLOOD ORDERABLES Fin al Result * (ABNORMAL) Lipid panel with reflex to direct LDL (09/10/2024 11:09 AM EST) Cholesterol 178 0 - 200 mg/dL LAB CHEMISTRY METHOD 09/10/2024 6:01 PM EST [facility] Triglycerides 102 0 - 150 mg/dL LAB CHEMISTRY METHOD 09/10/2024 6:01 PM [facility] HDL 45 >=40 mg/dL LAB CHEMISTRY METHOD 09/10/2024 6:01 PM [facility] LDL Calculated 113(H) 0 - 100 mg/dL LAB CHEMISTRY METHOD 09/10/2024 6:01 PM [facility] VLDL Cholesterol Rashel 20.4 mg/dL LAB CHEMISTRY METHOD 09/10/2024 6:01 PM [facility] Non HDL Chol. (LDL+VLDL) 133 <145 mg/dL LAB CHEMISTRY METHOD 09/10/2024 6:01 PM [facility] Chol/HDL Ratio 4.0 0.0 - 4.4 LAB CHEMISTRY METHOD 09/10/2024 6:01 PM [facility] Blood Venous blood specimen / Unknown Venipuncture / Unknown 09/10/2024 11:09 AM EST 09/10/2024 11:09 AM EST [facility] LAB BLOOD ORDERABLES Fi nal Result [facility] [address] [place] [address], * Colonoscopy (06/28/2023) Colonoscopy Abstracted, No interpretation Anatomical Region Laterality Modality Other Historical Provider HEALTH MAINTENANCE Final Result * Hepatitis C Screening (05/15/2022) Hepatitis C Screening Abstracted Historical Provider HEALTH MAINTENANCE Final Result from Last 3 Months or Most Recently Relevant to Health Maintenance Insurance [facility] Care Teams Cost Analyst Relationship Specialty Start Date End Date Anne-Marie Carvalho DO [address] [place] [address] PCP - General Internal Medicine 09/09/24
--- OUTSIDE RECORDS SUMMARY | 2025-01-26 11:51 | XMS_ITS | Data Portability ---
Author Organization [facility] [address] Address [address] [place] [address] Assessment No assessment recorded. Plan of Treatment Reminders Order Date Submit Date Provider Last Modified By Organization Details Last Modified Time Details Appointments None recorded. Lab None recorded. Referral None recorded. Procedures None recorded. Surgeries None recorded. Imaging XR, toe(s), 2 or more view - dropped vase on 2nd toe, r/o fx 024 024 [place] [facility], [address] [place], [address], 4 14:55:56 Medication Orders None recorded. Patient TargetsNo targets recorded. Patient InstructionsNo instructions recorded. Reason for Referral None Reported. Results Created Date Observation Date Name Description Value Unit Range Abnormal Flag Note LastModifiedBy Organization Detail LastModifiedTime 01/06/20 24 01/06/2024 XR, toe(s ), 2 or more view No observ ation record ed. [email or web address] [facility] [address] [place], [address], 01/06/2024 15:02:38 Result Notes None recorded. Problems Name Problem SNOMED Code Status Onset Date Resolution Date Notes Provider Name and Address Organization Details Recorded Time Hypercholestero lemia 25217155 Active [facility] 4 14:05:54 Problem Notes None recorded. Medical Equipment None Reported. Allergies No known drug allergies Medications Name Sig Start Date Stop Date Status Note LastModified by Organization Details LastModified Time pravastatin active Not Available Not A vailable Not Available Vitals Date Recorded Body height Body weight Body mass index (BMI) Oxygen saturation Oxygen saturation in Arterial blood by Pulse oximetry Pain severity - 0-10 verbal numeric rating [Score] - Reported Heart rate Respiratory rate Body temperature Systolic And Diastolic Provider Name and Address Organization Details Last Updated DateTime 167.64 cm 48815.6 3 g 29.1 kg/m2 97 % 97 % 9 61 /min 18 /min 97.1 [degF] 122/83 mm[Hg] Christie Reagan PA - [facility] 14:04:53 Social History Question Answer Notes LastModified by [employer] Details LastModified Time Tobacco Smoking Status Never Smoker Christie thompson PA - [facility] 01/06/2024 14:06:07 Have You Had A Flu Shot This Season? Yes [email or web address] Information not available 01/06/2024 Have You Had Direct Contact, Or Contact During Intimacy, With Monkeypox Rash, Scabs, Or Body Fluids From A Person With Monkeypox? No [email or web address] Information not available 01/06/2024 What Was The Date Of Your Most Recent Tobacco Screening? 01/06/2024 [email or web address] Information not available 01/06/2024 Have You Recently Traveled Abroad? No [email or web address] Information not available 01/06/2024 Sex: Unknown Functional Status Question Answer Note LastModified by [employer] Details LastModified Time Do you use any illicit or recreational drugs? No [email or web address] Information not available 01/06/2024 Do you or have you ever used any other forms of tobacco or nicotine? No [email or web address] Information not available 01/06/2024 What is your level of alcohol consumption? None [email or web address] Information not available 01/06/2024 Mental Status None recorded. Family History Nothing Reported. Medical History No medical history recorded. Past Encounters Encounter ID Performer Location Encounter Start Date Encounter Closed Date Diagnosis/Indication Diagnosis SNOMED-CT Code Diagnosis ICD10 Code Diagnosis [id number] [facility] [address] [place] [address] 10/19/2018 10:46:00 10/19/2018 12:56:13 [id number] [address] [place] [address] 05/03/2020 11:50:47 05/03/2020 13:01:33 [id number] [address] [place] [address] 07/20/2018 15:46:48 07/20/2018 16:06:58 [id number] [address] [place] [address] 10/22/2018 16:43:38 10/22/2018 18:30:13 [id number] [address] [place] [address] 02/21/2022 10:12:00 02/21/2022 12:02:10 [id number] [address] [place] [address] 04/29/2020 17:11:42 04/29/2020 18:13:10 [id number] [address] [place] [address] 07/19/2018 16:09:32 07/19/2018 17:20:27 [id number] [address] [address] [address] 10/19/2018 10:43:17 10/19/2018 12:56:09 [id number] [facility] [address] [place] [address] 01/06/2024 13:40:24 01/06/2024 14:43:43 Contusion of lesser toe of left foot [id number] S90.122A You have a Contusion of the left 2nd toe The following are my recommenda tions to help with your discomfort and healing1. Ice regularly for the next 3 days.2. Take Ibuprofen or Tylenol if you do not have any allergies to these medication s. If you take a blood thinner you should not take NSAIDS like Ibuprofen. 3. I would purchase some Arnica Cream and apply it to the bruise area. This will help with the healing and provide some pain relief. The bruise will resolve over time. The length is depended on the size. The larger the bruise the longer it will take for it to resolve. Some bruises/he matomas will take 1-2 months to completely resolve. If you have any concerns about the bruise or if it changes appearance , I would advise having a medical profession al look at it. Health Concerns Section Related Observation LastModified by Organization Detai ls LastModified Time None Recorded Concern Status LastModified by Organization Details LastModified Time None Recorded Advance Directives Directive None Recorded Payers Insurance Date Sequence Insurance Name Policy Number Policy Gay Covered Member ID Gay Member ID Guarantor Name 01/06/2024 1 [facility] [id number] Erickson Ivy [id number] Erickson Ivy 04/05/2024 1 [employer] [facility] ([facility]) Erickson Ivy [id number] Erickson Ivy Notes Date Note Type Note Provider Name and Address Organization Details Recorded Time 01/06/2024 text/html 58 y/o male here after dropping a vase on his L 2nd toe this morning. Taking apap without much relief [facility] [place], [address], [facility] - [facility] 01/06/2024 14:37:31
--- OUTSIDE RECORDS SUMMARY | 2025-01-26 11:51 | XMS_ITS | Patient Health Record ---
Author Organization [facility] Address [address] [facility] [place] [address] Care Team Providers Care Double Needle Operator Lockstitch Name Role Phone Phan Ren MD Primary Care Provider Delano Lacey Unavailable [phone] Reason For Referral No Information Medications Medication SIG (Take, Route, Fr equency, Duration) Notes Start Date End Date Status Aspirin 81 MG 1 tablet Orally Once a day; Duration: 30 day(s) Active Omeprazole 20 MG 1 capsule Orally Onc e a day; Duration: 30 day(s) Active Vitamin D 400 UNIT as directed Orally Active Latanoprost 0.005 % 1 drop into affected eye in the evening Ophthalmic Once a day Ac tive Problems Problem Type SNOMED Code ICD Code Onset Dates Problem Status W/U Status Risk Notes Problem Bursitis (50711356) Bursitis (727.3) Active confirmed Problem Congenital pes planus (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) Flat Foot, Congenital (754.61) Active confirmed Problem Myositis (18094939) Myositis (729.1) Active confirmed Problem Neuralgia - Neuritis (729.2) Active confirmed Problem Pain in limb (08994461) Pain in Limb (729.5) Active confirmed Problem Plantar fasciitis (301984830) Plantar Fasciitis (728.71) Active confirmed Plan Of Treatment Pending Test Test Name Order Date X ray : Foot, left 3V 05/19/2013 X ray : Foot, right 3V 06/11/2012 Insurance Providers Payer Name Payer Address Payer Phone Subscriber Number Group Number Insured Name Patient Relationship to Insured Coverage Start Date Coverage End Date [facility] [address] [place] [address] [phone] [id number] Erickson Ivy Self - patient is the insured 3 Medical (General) History Medical History History ICD Code back pain chicken pox prostate conditions reflux Surgical History Surgery Date(Month/Year) hernia 2002 Hospitalization History Reason Date(Month/Year) [facility] 04/2013
== END ==
LOC: HO.NUCMED 10:51
PROVIDERS: PCP Internal Medicine; Visit Provider Internal Medicine Nephrology
DX: E21.0 Primary hyperparathyroidism (principal)
CPT/HCPCS: 78072; A9500

== ENCOUNTER → 2025-01-26 10:55 | Outpatient (BNV) | payer BC, SELFPAY | PROVIDERS: PCP Internal Medicine; Visit Provider Radiology Diagnostic Radiology | DX: E21.0 Primary hyperparathyroidism (principal) | CPT/HCPCS: 78072 ==